=== PATIENT | male | born 2000 | race Two or more races ===

== ENCOUNTER 2022-04-28 21:18 | Emergency (ER) | payer SELFPAY ==
[~2022-04-28] VITALS: Ht 162.6 cm; Wt 60.3 kg
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
[2022-04-28] MEDS ORDERED: ACETAMINOPHEN 325 MG TABLET PO ONE (22:00)
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
[2022-04-28] MEDS ORDERED: ACETAMINOPHEN 325 MG TABLET ONE (22:26)
--- NOTE | 2022-04-28 22:29 | NUR ---
[facility] hayes and Dr. Alexander and this RN explained to the friend (Ant) to observe the pt over night for any symptoms such as vomiting and confusioin Addendum: 04/28/22 at 2233 by JASVIR [facility] hayes and Dr. Alexander and this RN explained to the friend (Ant) to observe the pt over night for any symptoms such as vomiting and confusion. Friend verbalizes understanding.
[2022-04-28 22:36] VITALS: BP 110/74
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
== END 2022-04-28 22:37 | disposition home or self-care (01) ==
LOC: ER 22:30
DX: S09.90XA Unspecified injury of head, initial encounter (principal); Y04.2XXA Assault by strike against or bumped into by another person, initial encounter; Y92.511 Restaurant or cafe as the place of occurrence of the external cause
CPT/HCPCS: A4663